=== PATIENT | male | born 1985 | race Two or more races ===

== ENCOUNTER 2018-12-01 18:23 | Inpatient (IN) | payer MEDICAID ==
[~2018-12-01] VITALS: Ht 180.3 cm; Wt 86.1 kg
[2018-12-01 19:18] LABS: Basophils # (auto) 0 uL; Basophils % (auto) 0.2 % (0.0-2.0); Eosinophils # (auto) 0 uL; Eosinophils % (auto) 0.1 % (0.0-7.0); Hematocrit 49.8 % (41.0-53.0); Hemoglobin 16.6 g/dL (13.5-17.5); Lymphocytes # (auto) 0.9 uL; Lymphocytes % (auto) 5.5 % (10.0-50.0); Mean Corpuscular Hemoglobin 28.7 pg (28.0-32.0); Mean Corpuscular Hgb Conc. 33.3 g/dL (32.0-36.0); Mean Corpuscular Volume 86.2 fL (80.0-100.0); Monocytes # (auto) 0.7 uL; Monocytes % (auto) 4.4 % (0.0-12.0); Neutrophils # (auto) 14.5 uL; Neutrophils % (auto) 89.8 % (37.0-80.0); Platelet Count (auto) 315 10^3/uL (140-450); Red Blood Cells 5.77 10^6/uL (4.5-5.90); Red Cell Distribution Width 12.5 % (11.8-14.3); White Blood Cell 16.2 10^3/uL (4.4-10.8)
[2018-12-01 19:28] LABS: Albumin 4.6 g/dL (3.4-5.0); Calcium 9.4 mg/dL (8.5-10.1)
[2018-12-01 19:32] LABS: Total Protein 8.8 g/dL (6.4-8.2)
[2018-12-01] MEDS ORDERED: IOHEXOL 300 MG/ML 100ML BOTTLE IJ ONE (19:44)
[2018-12-01 20:51] LABS: Lactic Acid w/Reflex 2.3 mmol/L (0.4-2.0)
[2018-12-01] MEDS ORDERED: MORPHINE SULF INJ 2 MG/ML SYRINGE 1ML IV ONE (21:00)
[2018-12-01] MEDS ORDERED: ONDANSETRON HCL 4 MG/2 ML VIAL IV ONE (21:00)
[2018-12-01] MEDS ORDERED: HYDROcodone-ACET 5/325MG TAB PO PRN (23:00)
[2018-12-01] MEDS ORDERED: ACETAMINOPHEN 325 MG TAB PO PRN (23:00)
[2018-12-01] MEDS ORDERED: metroNIDAZOLE 500MG/100ML 100 ML IV ONE (23:00)
[2018-12-01] MEDS ORDERED: TEMAZEPAM 15 MG CAP PO PRN (23:00)
[2018-12-01] MEDS ORDERED: SODIUM CHLORIDE 0.9% 1,000 ML IV ONE (23:00)
[2018-12-01] MEDS ORDERED: ONDANSETRON HCL 4 MG/2 ML VIAL IV PRN (23:00)
[2018-12-01] MEDS ORDERED: cefTRIAXone 1GM/50ML D5W 50 ML IV ONE (23:00)
[2018-12-01 23:32] LABS: Urine Bacteria FEW /hpf (None Seen); Urine Blood Negative /uL (Negative); Urine Hyaline Cast FEW /lpf (0 - 2); Urine Mucus FEW (None Seen); Urine Specific Gravity > 1.050 (1.001-1.035); Urine WBC 1 /hpf (0 - 3)
[2018-12-01 23:59] VITALS: BP 126/67
[2018-12-02] MEDS: SODIUM CHLORIDE 0.9% 1,000 ML IV SCH ×2 (01:06→06:00)
[2018-12-02] MEDS ORDERED: INFLUENZA QUAD 2019-2020 0.5ml SYRG IM ONE (02:15)
[2018-12-02] MEDS ORDERED: PNEUMOCOCCAL VACC POLYS 25 MCG/0.5 ML VIAL IM ONE (02:15)
[2018-12-02 05:00] VITALS: BP 109/62
[2018-12-02] MEDS: metroNIDAZOLE 500MG/100ML 100 ML IV SCH ×3 (05:59→21:53)
[2018-12-02 06:40] LABS: Basophils # (auto) 0 uL; Basophils % (auto) 0.1 % (0.0-2.0); Eosinophils # (auto) 0 uL; Eosinophils % (auto) 0.1 % (0.0-7.0); Hematocrit 40.9 % (41.0-53.0); Lymphocytes # (auto) 0.7 uL; Lymphocytes % (auto) 7.6 % (10.0-50.0); Mean Corpuscular Hemoglobin 29.7 pg (28.0-32.0); Mean Corpuscular Hgb Conc. 34.2 g/dL (32.0-36.0); Mean Corpuscular Volume 86.7 fL (80.0-100.0); Monocytes # (auto) 0.3 uL; Monocytes % (auto) 3.4 % (0.0-12.0); Neutrophils # (auto) 8.6 uL; Neutrophils % (auto) 88.8 % (37.0-80.0); Platelet Count (auto) 191 10^3/uL (140-450); Red Blood Cells 4.72 10^6/uL (4.5-5.90); Red Cell Distribution Width 12.5 % (11.8-14.3); White Blood Cell 9.6 10^3/uL (4.4-10.8)
[2018-12-02 06:51] LABS: Albumin 3.3 g/dL (3.4-5.0); Calcium 7.8 mg/dL (8.5-10.1); Potassium 3.4 mmol/L (3.5-5.1)
[2018-12-02 06:54] LABS: BUN/Creatinine Ratio 12.2
[2018-12-02 06:55] LABS: Bilirubin, Total 0.6 mg/dL (0.2-1.0); Total Protein 6.4 g/dL (6.4-8.2)
--- NOTE | 2018-12-02 08:00 | NUR ---
Patient in bed, awake, oriented x4. No acute distress noted. Patient is ambulatory.
[2018-12-02 09:00] VITALS: BP 117/58
--- NOTE | 2018-12-02 10:25 | NUR ---
Stool specimen sent to Laboratory.
--- NOTE | 2018-12-02 11:35 | NUR ---
Addison Torres at bedside. explained the Colonoscopy. Dr. Berry to do Colonoscopy tomorrow, 12/03/2018.
[2018-12-02] MEDS ORDERED: POTASSIUM CHL 20 Meq TABLET PO ONE (11:45)
[2018-12-02] MEDS ORDERED: GOLYTELY 4L KIT PO ONE (11:45)
[2018-12-02 13:00] VITALS: BP 122/79
[2018-12-02 13:59] LABS: INR 1.07 (0.9-1.15); Partial Thromboplastin Time 28.2 sec (23.64-32.05)
--- NOTE | 2018-12-02 14:14 | NUR ---
Social Service consult regarding Advance Directive. Provided pt with information on Advance Directives and Durable Power of Sales Strategy Manager Form. Pt verbalized understanding and was receptive of information. Will contact Senior Trial Attorney for any future concerns or issues.
[2018-12-02 17:00] VITALS: BP 124/75
--- NOTE | 2018-12-02 19:45 | NUR ---
Opening Shift Note Assumed care of patient, awake and alert oriented x4. No S/S of distress/SOB or pain noted. Instructed on POC and to call for assist PRN. Bed is in lowest locked position with bed rails up x2 and call light is within reach of the patient. Explained to patient that he must be NPO after midnight and educated that he must drink the golytely before midnight for procedure preparation. Patient verbalized understanding and stated "I am trying my hardest but its hard." Educated family and answered all questions.
[2018-12-02] MEDS ORDERED: cefTRIAXone 1GM/50ML D5W 50 ML IV SCH (21:00)
[2018-12-02 21:30] VITALS: BP 148/89
--- NOTE | 2018-12-03 | NUR ---
Patient NPO and patient tolerated golytely well. No S/S Of distress SOB noted.
[2018-12-03 05:00] VITALS: BP 122/92
[2018-12-03] MEDS: metroNIDAZOLE 500MG/100ML 100 ML IV SCH ×2 (05:54→14:00)
[2018-12-03] MEDS ORDERED: GOLYTELY 4L KIT PO ONE (06:00)
--- NOTE | 2018-12-03 06:00 | NUR ---
Patient to resume and consume remainder of Golytely: Instructed patient to resume and consume rest of golytely at this time as the doctor scheduled. Patient verbalized understanding and is to finish remainder of golytely.
[2018-12-03 07:18] LABS: Basophils # (auto) 0 uL; Basophils % (auto) 0.4 % (0.0-2.0); Eosinophils # (auto) 0.1 uL; Eosinophils % (auto) 1.4 % (0.0-7.0); Hematocrit 44.2 % (41.0-53.0); Hemoglobin 15.1 g/dL (13.5-17.5); Lymphocytes # (auto) 1.4 uL; Mean Corpuscular Hemoglobin 29.2 pg (28.0-32.0); Mean Corpuscular Hgb Conc. 34.2 g/dL (32.0-36.0); Mean Corpuscular Volume 85.5 fL (80.0-100.0); Monocytes # (auto) 0.6 uL; Monocytes % (auto) 8.5 % (0.0-12.0); Neutrophils # (auto) 4.6 uL; Neutrophils % (auto) 68.7 % (37.0-80.0); Nucleated Red Blood Cells % 0.2 %; Platelet Count (auto) 234 10^3/uL (140-450); Red Blood Cells 5.16 10^6/uL (4.5-5.90); Red Cell Distribution Width 12.6 % (11.8-14.3); White Blood Cell 6.6 10^3/uL (4.4-10.8)
[2018-12-03 07:37] LABS: Albumin 3.7 g/dL (3.4-5.0); Calcium 8.8 mg/dL (8.5-10.1); Potassium 3.8 mmol/L (3.5-5.1)
[2018-12-03 07:38] LABS: BUN/Creatinine Ratio 6.1; Bilirubin, Total 0.3 mg/dL (0.2-1.0); Total Protein 7.4 g/dL (6.4-8.2)
--- NOTE | 2018-12-03 07:45 | NUR ---
Patient in bed, asleep. No acute distress noted.
[2018-12-03] MEDS ORDERED: SODIUM CHLORIDE LOCK 10 ML ONE (08:20)
[2018-12-03] MEDS ORDERED: diphenhdrAMINE HCL 50 MG/1 ML VL ONE (08:21)
--- NOTE | 2018-12-03 10:40 | NUR ---
Transferred patient via bed to Pre Op for Colonoscopy. Patient awake, oriented x4, no acute distress noted, IV line on the left AC, 20 gauge, intact and patent. Endorsed patient to JENNYFER Santos.
[2018-12-03] MEDS: fentaNYL CITRATE 100 MCG/2 ML VL ONE ×2 (10:56→10:59)
[2018-12-03] MEDS: MIDAZOLAM HCL 5 MG/ML-1ML VIAL ONE ×2 (10:56→10:59)
[2018-12-03] MEDS ORDERED: MIDAZOLAM HCL 5 MG/ML-1ML VIAL ONE (11:06)
[2018-12-03] MEDS ORDERED: fentaNYL CITRATE 100 MCG/2 ML VL ONE (11:06)
[2018-12-03] MEDS ORDERED: CIPR-173 PO (11:40)
[2018-12-03] MEDS ORDERED: METR500T PO (11:40)
[2018-12-03 11:44] VITALS: BP 116/74
--- NOTE | 2018-12-03 11:55 | NUR ---
Patient back to room post Colonoscopy. As per GERIATRIC NURSE PRACTITIONERJENNYFER Alves, patient's Colonoscopy is an evaluation for Colitis, patient okay to go home as per GI perspective, patient to have Regular Diet. Waiting for Dr. Espinoza to see the patient.
--- NOTE | 2018-12-03 12:38 | NUR ---
Dr. Espinoza came over. wrote doctor's notes for the patient to present to his employer upon returning to work. Dr. Espinoza ordered to discharge the patient today.
== END 2018-12-03 16:20 | disposition home or self-care (01) | DRG 249 ==
LOC: ER 18:23 → OVERFLOW 18:24 → CENTRAL 18:25
PROVIDERS: ADMIT Nurse Practitioner; ATTEND Internal Medicine
PROC: 0DBL8ZX Excision of Transverse Colon, Via Natural or Artificial Opening Endoscopic, Diagnostic (ICD-10-PCS; 2018-12-03)
PROC: 0DBN8ZX Excision of Sigmoid Colon, Via Natural or Artificial Opening Endoscopic, Diagnostic (ICD-10-PCS; 2018-12-03)
PROC: 0DBM8ZX Excision of Descending Colon, Via Natural or Artificial Opening Endoscopic, Diagnostic (ICD-10-PCS; 2018-12-03)
PROC: 0DBK8ZX Excision of Ascending Colon, Via Natural or Artificial Opening Endoscopic, Diagnostic (ICD-10-PCS; principal; 2018-12-03 10:55)
DX: K52.9 Noninfective gastroenteritis and colitis, unspecified (principal); E87.2 Acidosis; K76.0 Fatty (change of) liver, not elsewhere classified; R65.10 Systemic inflammatory response syndrome (SIRS) of non-infectious origin without acute organ dysfunction; E86.0 Dehydration; R16.0 Hepatomegaly, not elsewhere classified; F41.9 Anxiety disorder, unspecified; F12.90 Cannabis use, unspecified, uncomplicated; K42.9 Umbilical hernia without obstruction or gangrene
CPT/HCPCS: 36415; 45380; 71045; 74177; 80053; 81001; 83605; 85025; 85610; 85730; 87040; 87045; 87427; 87493; 93005; 96365; 96368; 96375; G0378; J0696; J2250; J2405; J3490